=== PATIENT | female | born 1980 | race Caucasian/White ===

== ENCOUNTER 2020-05-19 08:29 | Day surgery (SDC) | payer SELFPAY ==
[~2020-05-19 08:29] MED LIST: Lactated Ringers 1,000 ML IV SCH
--- NOTE | 2020-05-19 09:35 | PCM.PREANE ---
Preanesthetic Assessment - Anesthesia/Transfusion/Family Hx Anesthesia History: Prior Anesthesia Without Reaction Family History of Anesthesia Reaction: No Transfusion History: No Prior Transfusion(s) - Review of Systems General: No Symptoms Pulmonary: No Symptoms Cardiovascular: No Symptoms Gastrointestinal: No Symptoms Neurological: No Symptoms Other: Reports: None - Physical Assessment NPO Status Date: 05/18/20 Vital Signs: Last Vital Signs Temp 98.4 F 05/19/20 08:35 Pulse 108 H 05/19/20 08:35 Resp 16 05/19/20 08:35 BP 131/91 H 05/19/20 08:35 Pulse Ox 100 05/19/20 08:35 Height: 5 ft 6 in Weight: 68.492 kg ASA Class: 2 Mental Status: Alert & Oriented x3 Airway Class: Mallampati = 2 ROM/Head Extension: Limited/Partial Lungs: Clear to Auscultation, Normal Respiratory Effort Cardiovascular: Regular Rate, Regular Rhythm - Lab Values: Laboratory Last Values WBC 5.41 K/uL (4.0-11.0) 05/19/20 08:54 RBC 4.71 M/uL (4.30-5.90) 05/19/20 08:54 Hgb 14.9 g/dL (12.0-16.0) 05/19/20 08:54 Hct 43.8 % (36.0-46.0) 05/19/20 08:54 MCV 93.0 fL (80.0-98.0) 05/19/20 08:54 MCH 31.6 pg (27.0-32.0) 05/19/20 08:54 MCHC 34.0 g/dL (31.0-37.0) 05/19/20 08:54 RDW Std Deviation 41.0 fl (28.0-62.0) 05/19/20 08:54 RDW Coeff of Shai 12 % (11.0-15.0) 05/19/20 08:54 Plt Count 215 K/uL (150-400) 05/19/20 08:54 MPV 12.50 fL (7.40-12.00) H 05/19/20 08:54 Nucleated RBC % 0.0 /100WBC 05/19/20 08:54 Nucleated RBCs # 0 K/uL 05/19/20 08:54 Urine HCG, Qual NEGATIVE (NEGATIVE) 05/19/20 08:35 - Allergies Allergies/Adverse Reactions: Allergies Allergy/AdvReac Type Severity Reaction Status Date / Time No Known Allergies Allergy Verified 05/13/20 12:06 - Anesthesia Plan Pre-Op Medication Ordered: None - Acknowledgements Anesthesia Type Planned: Spinal Pt an Appropriate Candidate for the Planned Anesthesia: Yes Alternatives and Risks of Anesthesia Discussed w Pt/Guardian: Yes Pt/Guardian Understands and Agrees with Anesthesia Plan: Yes PreAnesthesia Questionnaire - Past Health History Medical/Surgical History: Denies Medical/Surgical History HEENT History: Reports: None Cardiovascular History: Reports: None Respiratory History: Reports: None Gastrointestinal History: Reports: None Genitourinary History: Reports: None Musculoskeletal History: Reports: None Neurological History: Reports: None Psychiatric History: Reports: None Endocrine/Metabolic History: Reports: None Hematologic History: Reports: None Immunologic History: Reports: None Oncologic (Cancer) History: Reports: None Dermatologic History: Reports: None - Infectious Disease History Infectious Disease History: Reports: None - Past Surgical History Head Surgeries/Procedures: Reports: None HEENT Surgical History: Reports: Tonsillectomy Cardiovascular Surgical History: Reports: None Respiratory Surgical History: Reports: None GI Surgical History: Reports: None Female Surgical History: Reports: None Endocrine Surgical History: Reports: None Neurological Surgical History: Reports: None Musculoskeletal Surgical History: Reports: None Oncologic Surgical History: Reports: None Dermatological Surgical History: Reports: None - SUBSTANCE USE Tobacco Use Status *Q: Never Tobacco User - HOME MEDS Home Medications: Home Meds . [No Known Home Meds] 05/14/20 [History] - CURRENT (IN HOUSE) MEDS Current Meds: Current Medications Lactated Ringer's (Ringers, Lactated) 1,000 mls @ 125 mls/hr IV ASDIRECTED [facility] Last Admin: 05/19/20 09:00 Dose: 125 mls/hr Documented by:
[2020-05-19] MEDS ORDERED: fentaNYL 100 MCG/2 ML SDV ONE (10:19)
[2020-05-19] MEDS ORDERED: Propofol 200 MG/20 ML SDV ONE (10:19)
[2020-05-19] MEDS ORDERED: Midazolam 1 MG/ML 2 ML SDV ONE (10:19)
[2020-05-19] MEDS ORDERED: Dexamethasone 4 MG/ML 5 ML MDV ONE (10:21)
[2020-05-19] MEDS ORDERED: Ketorolac 30 MG/ML SDV ONE (10:21)
[2020-05-19] MEDS ORDERED: Ondansetron 4 MG/2 ML SDV ONE (10:21)
[2020-05-19] MEDS ORDERED: 50% Dextrose in Water 50 ML Syringe IVPUSH PRN (10:44)
[2020-05-19] MEDS ORDERED: HYDROmorphone 2 MG/ML Syringe IVPUSH PRN (10:44)
[2020-05-19] MEDS ORDERED: fentaNYL 100 MCG/2 ML SDV IVPUSH PRN (10:44)
[2020-05-19] MEDS ORDERED: Naloxone 0.4 MG/ML Syringe IVPUSH PRN (10:44)
[2020-05-19] MEDS ORDERED: Atropine 0.1 MG/ML 10 ML Syringe IVPUSH PRN ×2 (10:44)
[2020-05-19] MEDS ORDERED: EPINEPHrine 1:10,000 1 MG/10 ML Syringe IVPUSH PRN (10:44)
[2020-05-19] MEDS ORDERED: Ondansetron 4 MG/2 ML SDV IVPUSH PRN (10:44)
[2020-05-19] MEDS ORDERED: Albuterol 0.083% 2.5 MG/3 ML Neb Soln NEB PRN (10:44)
--- NOTE | 2020-05-19 11:13 | PCM.OPNOTE ---
- General Post-Op/Procedure Note Date of Surgery/Procedure: 05/19/20 Operative Procedure(s): Loop electrosurgical excision procedure Findings: Areas of 12 o'clock to 3 o'clock and at 6 o'clock, did not uptake Lugol's solution. Consistent with cervical dysplasia and acetowhite changes. IUD strings present at cervical os. Pre Op Diagnosis: Moderate cervical dysplasia Post-Op Diagnosis: Same Anesthesia Technique: General LMA Primary Surgeon: Pallavi Ratliff Pathology: Biopsy from 3 o'clock position along with anterior and posterior ectocervix. Endocervix. Fluid Replacement, Intraop: 600 EBL in mLs: 15 Complications: None Condition: Good Free Text/Narrative:: Dictation #[id number]
--- NOTE | 2020-05-19 11:28 | PCM.POSTAN ---
POST ANESTHESIA ASSESSMENT - MENTAL STATUS Mental Status: Alert, Oriented - VITAL SIGNS Vital Signs: Last Vital Signs Temp 97.9 F 05/19/20 10:59 Pulse 93 05/19/20 11:19 Resp 12 05/19/20 11:19 BP 125/79 05/19/20 11:19 Pulse Ox 98 05/19/20 11:19 - RESPIRATORY Respiratory Status: Respiratory Rate WNL, Airway Patent, O2 Saturation Stable - CARDIOVASCULAR CV Status: Pulse Rate WNL, Blood Pressure Stable - GASTROINTESTINAL GI Status: No Symptoms - POST OP HYDRATION Hydration Status: Adequate & Stable
--- NOTE | 2020-05-19 11:50 | PCM48HPAN ---
Post Anesthesia Note - EVALUATION WITHIN 48HRS OF ANESTHETIC Vital Signs in Normal Range: Yes Patient Participated in Evaluation: Yes Respiratory Function Stable: Yes Airway Patent: Yes Cardiovascular Function Stable: Yes Hydration Status Stable: Yes Pain Control Satisfactory: Yes Nausea and Vomiting Control Satisfactory: Yes Mental Status Recovered: Yes Vital Signs: Last Vital Signs Temp 37.1 C 05/19/20 11:26 Pulse 103 H 05/19/20 11:26 Resp 14 05/19/20 11:26 BP 132/81 05/19/20 11:26 Pulse Ox 98 05/19/20 11:26
--- NOTE | 2020-05-19 12:25 | OR ---
SURGEON: PALLAVI RATLIFF MD DATE OF PROCEDURE: 05/19/2020 PREOPERATIVE DIAGNOSIS: Moderate cervical dysplasia. POSTOPERATIVE DIAGNOSIS: Moderate cervical dysplasia. PROCEDURE: Loop electrosurgical excision procedure. PRIMARY SURGEON: Pallavi Ratliff MD, present for the entire procedure. ANESTHESIA: LMA. COMPLICATIONS: None. ESTIMATED BLOOD LOSS: 15 mL. IV FLUIDS: 600 mL of crystalloid. INDICATIONS: A 40-year-old, 2, para 2, female with a history of ASCUS-H Pap smear and PAUL 2 cervical biopsies. FINDINGS: Areas of the cervix at 12 o'clock to 3 o'clock and 6 o'clock did not uptake Lugol's solution consistent with cervical dysplasia and acetowhite changes. IUD strings noted at cervical os. DESCRIPTION OF PROCEDURE: The patient was taken to the operating room where LMA anesthesia was induced. She was prepped and draped in the normal sterile fashion in a lithotomy position. A coated Graves speculum was placed into the vagina to visualize the cervix. Approximately 5 mL of 1% lidocaine with epinephrine was injected circumferentially around the cervix. Acetic acid was placed over the cervix along with Lugol's solution. Findings noted as above. A 20 mm x 10 mm cautery loop was then used to extract the abnormal areas. Initially, posterior of the ectocervix by a 3 o'clock position in the anterior ectocervix. A 10 mm x 4 mm square loop was then used to excise the endocervical area. The endocervix and ectocervix were then cauterized with rollerball cautery and Monsel's was placed. Hemostasis was noted. All instruments were then removed from the vagina. Upon removal of the speculum, superficial lacerations not needing repair were noted at the introitus bilaterally. 2.5 mL of local anesthetic was then injected bilaterally for postoperative pain management. The patient tolerated the procedure well. Sponge, lap, and needle counts were correct x2. The patient was taken back to Recovery in stable condition. MICHELLE / JACQUE /[id number] SKINNY
== END 2020-05-19 12:02 | disposition home or self-care (01) ==
LOC: MW.SDS 08:29
PROVIDERS: ATTEND Obstetrics & Gynecology
DX: N87.0 Mild cervical dysplasia (principal); Z79.899 Other long term (current) drug therapy
CPT/HCPCS: 36415; 57522; 81025; 85027; 88305; J1100; J1885; J2001; J2250; J2704; J7120; 00940; J2405; J3010